=== PATIENT | female | born 1970 | race Two or more races ===

== ENCOUNTER → 2020-03-02 | Outpatient (CLI) | payer OTHER, SELFPAY | LOC: M LABSMTC 13:53 | PROVIDERS: ATTEND Pediatrics | DX: Z20.828 Contact with and (suspected) exposure to other viral communicable diseases (principal) ==

== ENCOUNTER → 2021-01-13 | Outpatient (REF) ==
[~2021-01-13] MED LIST: CYCL-707 PO; HYDR-3490 PO; LOSA100T50 PO; NAPR-885 PO; PREG150C PO; ZOLP10TA2 PO
== END ==
LOC: M LABSMTC 11:45
PROVIDERS: ATTEND Pediatrics
DX: Z11.52 Encounter for screening for COVID-19 (principal); Z20.822 Contact with and (suspected) exposure to COVID-19

== ENCOUNTER 2021-01-16 01:53 | Inpatient (IN) | payer BC, OTHER ==
[2021-01-16] VITALS (8 sets, daily range): BP systolic 99–105; BP diastolic 52–66; O2SAT 90–95
[~2021-01-16] VITALS: Ht 170.2 cm; Wt 108.7 kg
[2021-01-16] MEDS ORDERED: ONDANSETRON 4MG/2ML VIAL IV ONE (02:45)
[2021-01-16] MEDS ORDERED: KETOROLAC 30 MG/ML 1ML VIAL IV ONE (02:45)
[2021-01-16] MEDS ORDERED: NS 1,000 ML IV ONE ×2 (02:45→04:50)
[2021-01-16 03:18] LABS: BASO # 0.1 10^3/uL (0.0-0.2); BASO % 0.4 % (0.0-1.0); EOS % 0.2 % (0.0-3.0); HEMATOCRIT 38.6 % (36.0-47.0); HEMOGLOBIN 13.8 g/dl (12.0-15.5); MEAN CORPUSCULAR HEMOGLOBIN 32.2 pg (27.0-33.0); MEAN CORPUSCULAR HGB CONC 35.8 g/dl (32.0-36.5); MEAN CORPUSCULAR VOLUME 90.2 fl (80.0-96.0); MONO # 0.5 10^3/uL (0.0-0.8); MONO % 2.9 % (2.0-8.0); NEUTROPHILS # 14.5 10^3/uL (1.5-8.5); NEUTROPHILS % 89.9 % (36.0-66.0); PLATELET COUNT, AUTOMATED 304 10^3/uL (150-450); RED BLOOD COUNT 4.28 10^6/uL (4.00-5.40); WHITE BLOOD COUNT 16.1 10^3/uL (4.0-10.0)
[2021-01-16] MEDS ORDERED: cefTRIAXone SOD 2 GM in D5W MINI-BAG PLUS 50 ML IV ONE (03:20)
[2021-01-16] MEDS: MORPHINE 2 MG/ML 1ML VIAL (J2270) IV PRN ×2 (03:32→04:52)
--- NOTE | 2021-01-16 03:35 | REPVR ---
PROCEDURE INFORMATION: Exam: CT Abdomen And Pelvis Without Contrast Exam date and time: 01/16/2021 2:19 AM Age: 50 years old Clinical indication: Abdominal pain; Additional info: Left sided flank pain, recent UTI, h/o stones TECHNIQUE: Imaging protocol: Computed tomography of the abdomen and pelvis without contrast. Radiation optimization: All CT scans at this facility use at least one of these dose optimization techniques: automated exposure control; mA and/or kV adjustment per patient size (includes targeted exams where dose is matched to clinical indication); or iterative reconstruction. COMPARISON: No relevant prior studies available. Study limitations: Evaluation for mass, inflammatory change, including bowel wall/fold thickening, viscera, and vasculature, is suboptimal without contrast. FINDINGS: LUNG BASES: No infiltrate or effusion. VASCULAR: Visualized cardiac size is at the upper end of normal. There is some calcific density in the region of the mitral valve. No abdominoaortic aneurysm or retroperitoneal hematoma. There is calcific atherosclerosis. Vascular patency is not evaluated on this exam. PERITONEAL : No free air or free fluid. GI: No hiatal hernia. The stomach contains some ingested material and gas. The stomach is not sufficiently distended to evaluate wall thickening. There is a 2.4 cm ovoid fatty lesion within the duodenal bulb which could represent a lipoma or ingested material. No appearance of a bowel obstruction. Evaluation for bowel wall and fold thickening is compromised on this study, secondary to lack of any contrast. No focal mesenteric inflammation is seen. Small nonspecific mesenteric lymph nodes are noted. Scattered fecal material and gas within portions of the colon and rectum. There is some reflux of fecal material into the distal ileum. No evidence of acute diverticulitis. The appendix does not appear inflamed. HEPATOBILIARY, PANCREAS, SPLEEN: Hepatic length is 25.7 cm. Attenuation of the liver is consistent with steatosis. The gallbladder has been removed. No pancreatic inflammation. Spleen not enlarged. ADRENALS, KIDNEYS, BLADDER, RETROPERITONEAL: Adrenals within normal limits. The left kidney appears slightly edematous and is mildly enlarged. There is mild left perinephric fatty stranding and pararenal fascial thickening compared to the right. There is moderately severe hydronephrosis of the left kidney. Within the left proximal ureter close to the left UPJ, there is a 6.1 x 7.7 by 11.4 mm calculus. No additional ureteral or obstructive calculi seen bilaterally. There are multiple additional nonobstructive bilateral renal calcifications. There is gas seen within the left renal collecting system, at the upper pole of the left kidney. There is gas within the urinary bladder. Unless there has been recent instrumentation, findings are worrisome for infection with gas producing organism or possibly fistula. Renal parenchyma is not well evaluated without contrast. Parenchymal involvement cannot be excluded by this study. Correlation with urinalysis and culture. No intraparenchymal renal gas is seen. The urinary bladder is not sufficiently distended to evaluate wall thickening or for complete diagnostic evaluation by this study. Clinical correlation and clinical follow-up is advised. Multiple small retroperitoneal lymph nodes are noted. PELVIC: No dominant cystic pelvic mass seen. The uterus is not visualized. Gas within the vagina may be iatrogenic. Differential could include infection or fistula. MUSCULOSKELETAL: Tiny fat containing umbilical hernia. Degenerative changes of the spine, most pronounced at the lower lumbar levels. Mild scoliosis. Mild bony degenerative changes within the pelvis. IMPRESSION: Edematous appearing left kidney with moderately severe hydronephrosis, secondary to a 6.1 x 7.7 x 11.4 mm calculus at the left UPJ. There is gas within the left renal collecting system and within the urinary bladder. Clinical correlation is advised. Genitourinary findings, differential and recommendations discussed above in detail. Severe hepatomegaly and hepatic steatosis. Other incidental findings and study limitations discussed above. Electronically signed by: Elver Rendon On 01/16/2021 03:34:09 AM
[2021-01-16 03:45] LABS: ALBUMIN 3.4 GM/DL (3.2-5.2); BILIRUBIN,DIRECT 0.1 MG/DL (0.0-0.2); BILIRUBIN,TOTAL 0.6 MG/DL (0.2-1.0); TOTAL PROTEIN 7.2 GM/DL (6.4-8.2)
[2021-01-16 04:17] LABS: RSV AMPLIFICATION NEGATIVE (NEGATIVE)
[2021-01-16] MEDS ORDERED: PREG150C PO (04:39)
[2021-01-16] MEDS ORDERED: NAPR-885 PO (04:39)
[2021-01-16] MEDS ORDERED: ZOLP10TA2 PO (04:39)
[2021-01-16] MEDS ORDERED: CYCL-707 PO (04:39)
[2021-01-16] MEDS ORDERED: HOME MED LIST COMPLETE! XX SCH (04:40)
[2021-01-16] MEDS ORDERED: HYDR-3490 PO (04:40)
[2021-01-16] MEDS ORDERED: LOSA100T50 PO (04:40)
[2021-01-16] MEDS ORDERED: ONDANSETRON 4MG/2ML VIAL IV PRN ×2 (04:45→09:30)
[2021-01-16] MEDS ORDERED: MOM 30ML SUSPENSION UDC PO PRN (04:45)
[2021-01-16] MEDS ORDERED: PIPERACILLIN/TAZOBACTAM SOD 3.375 GM in D5W MINI-BAG PLUS 50 ML IV SCH (04:45)
--- NOTE | 2021-01-16 04:45 | HPEPDOC ---
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 She's been having over the past several days urine that felt different but cannot describe it denies it being painful. She denies fevers or chills although she is starting to feel feverish right now in the ED. Her flank pain is associated with no nausea but no vomiting. She's had history of renal stones in the past and underwent lithotripsy approximately 10 years ago. She was recently treated for UTI 3 weeks ago she was treated with IM Rocephin and by mouth Keflex after which she felt better. In the ED imaging reveals left hydronephrosis secondary to a 6.1 x 7.7 x 11.4 mm calculus at the left UPJ. Urology Dr. Mcknight was consulted from the ED by Dr. Weir who advised patient will likely require stent in the morning and should be kept nothing by mouth he advised that he will sign out to the morning urologist when they switched shifts at 5 AM. Patient will be admitted to the hospital service in the meantime for treatment of complicated pyelonephritis with IV antibiotics and kept nothing by mouth for likely stenting by urology later today. 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 REVIEW OF SYSTEMS: 10 point review of systems complete all negative otherwise stated in HPI HOME MEDICATIONS: Please see below. PHYSICAL EXAMINATION: Constitutional: Awake and alert, in mild apparent discomfort ENT: Sclera are clear. Mucosa is moist. Respiratory: Lungs faint expiratory wheezing bilaterally otherwise clear lungs. No respiratory distress. No use of accessory muscles. Cardiovascular: RRR S1 and S2 are normal Gastrointestinal: Abdomen is soft, non distended, non tender, BS present. Musculoskeletal: symmetrical dependent lower extremity edema. left sided CVA tenderness. Neurologic: No focal neurological deficit. Mental Status: A&O x3, normal affect Skin: Warm, dry LABORATORY DATA: See below. IMAGING: See chart MICROBIOLOGY: Please see below. ASSESSMENT/PLAN 50-year-old female admitted with left flank pain found to have suspect pyelonephritis versus infected renal stone. Admitted for IV antibiotics and evaluation by urology likely for stenting later today. # Suspect pyelonephritis versus infected renal stone: IV Zosyn for complicated disease with presence of stone and severe hydro on CT. Pain control IV morphine PRN. IV zofran PRN. 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 NPO for likely p rocedure this morning for stenting. Fu UCx. # Hypertension: Uncontrolled. Pain probably contributing. Pain control. Continue home antihypertensive medications. Adjust and titrate as needed. # Suspected newly diagnosed DM: Blood sugar 322. Fu A1C. ISS. Hypoglycemic precautions. # DVT prophylaxis: Heparin A Yousef Hospitalist Vital Signs Vital Signs Date Time Temp Pulse Resp B/P (MAP) Pulse Ox O2 Delivery O2 Flow Rate FiO2 01/16/21 03:32 20 97 Room Air 01/16/21 01:54 98.9 98 170/92 (118) Laboratory Data Labs 24H Laboratory Tests 2 01/16/21 02:07: Urine Color YELLOW, Urine Appearance CLOUDYH, Urine pH 5.0, Urine Specific [place] 1.027, Urine Protein 2+H, Urine Glucose (UA) 3+H, Urine Ketones NEGATIVE, Urine Blood 3+H, Urine Nitrite POSITIVEH, Urine Bilirubin NEGATIVE, Urine Urobilinogen 0.2, Urine Leukocyte Esterase 2+H, Urine WBC (Auto) TNTCH, Urine RBC (Auto) 137H, Urine Hyaline Casts (Auto) 0, Urine Bacteria (Auto) 1+H, Urine Squamous Epithelial Cells 8, Urine Mucus (Auto) SMALL, Urine Yeast-Like Cells (Auto) SMALLH, Urine Sperm (Auto) 01/16/21 02:53: Immature Granulocyte % (Auto) 0.6, Neutrophils (%) (Auto) 89.9H, Lymphocytes (%) (Auto) 6.0L, Monocytes (%) (Auto) 2.9, Eosinophils (%) (Auto) 0.2, Basophils (%) (Auto) 0.4, Neutrophils # (Auto) 14.5H, Lymphocytes # (Auto) 1.0L, Monocytes # (Auto) 0.5, Eosinophils # (Auto) 0.0, Basophils # (Auto) 0.1, Nucleated Red Blood Cells % (auto) 0.0, Total Bilirubin 0.6, Direct Bilirubin 0.1, Aspartate Amino Transf (AST/SGOT) 17, Alanine Aminotransferase (ALT/SGPT) 31, Alkaline Phosphatase 101, Total Protein 7.2, Albumin 3.4, Albumin/Globulin Ratio 0.9L, Lipase 147, Coronavirus (COVID-19)(PCR) NEGATIVE, Influenza Type A (RT-PCR) NEGATIVE, Influenza Type B (RT-PCR) NEGATIVE, Respiratory Syncytial Virus (PCR) NEGATIVE 01/16/21 03:23: POC Glucose (Misc Panel) 322H, POC Sodium (Misc Panel) 135L, POC Potassium (Misc Panel) 3.7, POC Chloride (Misc Panel) 96L, POC Total CO2 (Misc Panel) 25.0, POC Blood Urea Nitrogen (Misc Panel 17, POC Ionized Calcium (Misc Panel) 4.7, POC Creatinine (Misc Panel) 0.7, POC Hematocrit (Misc Panel) 39.0 CBC/BMP Laboratory Tests 01/16/21 02:53 Microbiology Microbiology 01/16/21 Urine Culture, Received Pending Home Medications Scheduled Cyclobenzaprine HCl (Cyclobenzaprine HCl) 10 Mg Tablet, 10 MG PO QHS PT WORKS [employer] Hydrochlorothiazide (Hydrochlorothiazide) 25 Mg Tablet, 25 MG PO BID Losartan Potassium (Losartan Potassium) 100 Mg Tablet, 100 MG PO DAILY Naproxen (Naproxen) 500 Mg Tablet, 500 MG PO BID Pregabalin (Pregabalin) 150 Mg Capsule, 150 MG PO BID Zolpidem Tartrate (Zolpidem Tartrate) 10 Mg Tablet, 10 MG PO QHS PT, WORKS [employer] Allergies Coded Allergies: Penicillins (Verified Allergy, Mild, 01/16/21) JENISE GRACE MD Jan 16, 2021 04:45
[2021-01-16] MEDS ORDERED: GLUCAGON INJ 1MG VIAL SC PRN (05:00)
[2021-01-16] MEDS ORDERED: GLUCOSE 4GM CHEW TABLET PO PRN (05:00)
[2021-01-16] MEDS ORDERED: DEXTROSE 50% 50 ML SYRINGE IV PRN (05:00)
--- NOTE | 2021-01-16 05:13 | REPVR ---
PROCEDURE INFORMATION: Exam: XR Chest Exam date and time: 01/16/2021 5:01 AM Age: 50 years old Clinical indication: Pre-operative exam; Respiratory screening exam; Additional info: Preop TECHNIQUE: Imaging protocol: XR of the chest. Views: 1 view. COMPARISON: None FINDINGS: LUNGS and PLEURAL SPACE: The lungs are symmetrically expanded. Lung volumes are at the lower end of normal. Mildly elevated vascular and reticular lung markings seen which could be correlated for mild vascular congestion. There is no consolidation, pneumothorax or pleural effusion. MEDIASTINUM: There is no mediastinal shift or widening. CARDIAC SILHOUETTE: Cardiac size is at the upper end of normal. BONY THORAX: No acute findings are seen. IMPRESSION: Mildly elevated vascular/reticular lung markings. Findings discussed above in detail. Electronically signed by: Elver Rendon On 01/16/2021 05:13:35 AM
--- NOTE | 2021-01-16 05:52 | ECGEPIP ---
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
[2021-01-16] MEDS ORDERED: METOCLOPRAMIDE INJ 10MG/2ML VIAL (J2765 PER 1) IV ONE (06:30)
[2021-01-16] MEDS: HEPARIN SOD (PORCINE) 5000UNITS/ML 1ML VIAL/SYRINGE SC SCH ×3 (06:39→21:41)
[2021-01-16] MEDS: HumaLOG INSULIN (NovoLOG) PER UNIT SC SCH ×3 (06:46→17:54)
[2021-01-16] MEDS: ACETAMINOPHEN TAB 650MG DOSE (2X325MG) PO PRN (06:50)
[2021-01-16 07:18] LABS: HEMATOCRIT 36.3 % (36.0-47.0); MEAN CORPUSCULAR HGB CONC 35.8 g/dl (32.0-36.5); MEAN CORPUSCULAR VOLUME 92.1 fl (80.0-96.0); PLATELET COUNT, AUTOMATED 234 10^3/uL (150-450); RED BLOOD COUNT 3.94 10^6/uL (4.00-5.40); WHITE BLOOD COUNT 7.5 10^3/uL (4.0-10.0)
[2021-01-16] MEDS ORDERED: CONRAY-60 60% 50ML VIAL (Q9961) As Ordered ONE (07:29)
[2021-01-16] MEDS ORDERED: NS 1,000 ML IV SCH (07:30)
[2021-01-16 07:35] LABS: HEMOGLOBIN A1c 8.8 %
[2021-01-16 07:41] LABS: BILIRUBIN,TOTAL 0.5 MG/DL (0.2-1.0); CALCIUM LEVEL 8.1 MG/DL (8.5-10.1); CREATININE FOR GFR 1.24 MG/DL (0.55-1.30); GLOMERULAR FILTRATION RATE 48.5 (>51); POTASSIUM SERUM 3.7 MEQ/L (3.5-5.1); TOTAL PROTEIN 6.4 GM/DL (6.4-8.2)
[2021-01-16] MEDS ORDERED: fentaNYL 100 MCG/2 ML INJECTION (J3010) As Ordered ONE (07:51)
[2021-01-16] MEDS ORDERED: propofoL 200 MG/20 ML VIAL As Ordered ONE ×2 (07:51→07:52)
[2021-01-16] MEDS ORDERED: LIDOCAINE 2% 100MG/5ML SDV (FOR ANES.) As Ordered ONE (07:51)
[2021-01-16] MEDS ORDERED: ONDANSETRON 4MG/2ML VIAL As Ordered ONE (07:51)
[2021-01-16] MEDS ORDERED: MIDAZOLAM INJ 2MG/2ML VIAL (J2250 PER 1MG) As Ordered ONE (07:51)
[2021-01-16] MEDS ORDERED: dexameTHASONE 4 MG/ML 1ML VIAL (J1100 PER 1MG) As Ordered ONE (07:51)
--- NOTE | 2021-01-16 08:14 | SMCUROLCON ---
Urology Consultation General Date of Consultation 01/16/21 Reason For Consultation This patient is seen for Hydronephrosis,Pyelonephritis,Ureteral Stone. History of Present Illness This is a 50 y/o F w/ a PMH significant for HTN and kidney stones, presenting to the ER w/ worsening L flank pain and nausea and vomiting. Work up in the ED was notable for a 1cm obstructing L UPJ stone w/ air in the upper pole of an edematous appearing L kidney as well as additional small nonobstructing stones. Her UA is positive for nitrites, TNTC WBC, and 1+ bacteria. She notes that she has progressively felt worse since being in the ER. She notes having dysuria over the last few days and has started having fevers this morning. Past Medical History Medical History see HPI Surgical Hstory Hysterectomy Cholecystectomy Lithotripsy Medications Current Medications Current Medications Medications (Trade) Dose Ordered Sig/Clotilde Route PRN Reason Start Time Stop Time Status Last Admin Dose Admin Acetaminophen (Tylenol Tab) 650 mg Q4H PRN PO MILD PAIN or TEMP > 101 01/16/21 04:45 01/16/21 06:50 Cefepime HCl 2 gm/ Dextrose 50 ml @ 100 mls/hr Q8H IV 01/16/21 08:00 Cyclobenzaprine HCl (Flexeril) 10 mg QHS PO 01/16/21 21:00 Dextrose (Dextrose 50%) 25 ml ASDIRECTED PRN IV SEE LABEL COMMENTS 01/16/21 05:00 Glucagon (Glucagon) 1 mg ASDIRECTED PRN SC SEE LABEL COMMENTS 01/16/21 05:00 Glucose (Glucose) 16 GM ASDIRECTED PRN PO SEE LABEL COMMENTS 01/16/21 05:00 Heparin Sodium (Porcine) (Heparin) 5,000 units Q8H SC 01/16/21 06:00 01/16/21 06:39 Home Med (Home Med List Complete!) ASDIRECTED XX 01/16/21 04:40 01/16/21 04:43 DC Hydrochlorothiazide (Hydrodiuril) 25 mg BID PO 01/16/21 09:00 Insulin Human Lispro (HumaLOG INSULIN) SEE PROTOCOL TABLE Q6H SC 01/16/21 06:00 01/16/21 06:46 Losartan Potassium (Cozaar) 100 mg DAILY PO 01/16/21 09:00 Magnesium Hydroxide (Milk Of Magnesia) 30 ml DAILY PRN PO CONSTIPATION 01/16/21 04:45 Morphine Sulfate (Morphine Sulfate Inj) 2 mg Q30M PRN IV MODERATE PAIN (PS 5-7) 01/16/21 02:45 01/16/21 04:52 DC 01/16/21 04:52 Ondansetron HCl (ZOFRAN INJection) 4 mg Q6HP PRN IV NAUSEA OR VOMITING 01/16/21 04:45 01/16/21 05:18 Piperacillin Sod/ Tazobactam Sod 3.375 gm/Dextrose 50 ml @ 50 mls/hr Q6H IV 01/16/21 04:45 01/16/21 05:25 DC Pregabalin (Lyrica) 150 mg BID PO 01/16/21 09:00 Sodium Chloride 1,000 ml @ 100 mls/hr Q10H IV 01/16/21 07:30 Allergies Allergies: Coded Allergies: Penicillins (Verified Allergy, Mild, 01/16/21) Review of Systems Constitutional: Reports: Fever Pulmonary: Denies: Dyspnea, Cough Cardiovascular: Denies Chest Pain, Denies Palpitations Gastrointestinal: Reports: Nausea, Vomiting Genitourinary: Reports: Dysuria Musculoskeletal: Reports: Back Pain (L flank) Neurological: Denies: Weakness, Numbness, Incoordination, Change in Speech Psych: Reports: Mood Normal Physical Examination General Exam: Alert, Cooperative, No Acute Distress Chest Exam: Normal air movement Heart Exam: Tachycardic Abdomen Exam: Soft Skin Exam: Nl turgor and temperature Neuro Exam: Normal Speech Psych Exam: Mental status NL, Mood NL Vital Signs/I&O Vital Signs Date Time Temp Pulse Resp B/P (MAP) Pulse Ox O2 Delivery O2 Flow Rate FiO2 01/16/21 06:55 129 18 93 Room Air 01/16/21 06:40 102.1 01/16/21 06:00 131/56 (81) I&O- Last 24 Hours up to 6 AM 01/16/21 06:00 Intake Total 1050 ml Balance 1050 ml Laboratory Data 24H Labs Laboratory Tests 2 01/16/21 02:07: Urine Color YELLOW, Urine Appearance CLOUDYH, Urine pH 5.0, Urine Specific [place] 1.027, Urine Protein 2+H, Urine Glucose (UA) 3+H, Urine Ketones NEGATIVE, Urine Blood 3+H, Urine Nitrite POSITIVEH, Urine Bilirubin NEGATIVE, Urine Urobilinogen 0.2, Urine Leukocyte Esterase 2+H, Urine WBC (Auto) TNTCH, Urine RBC (Auto) 137H, Urine Hyaline Casts (Auto) 0, Urine Bacteria (Auto) 1+H, Urine Squamous Epithelial Cells 8, Urine Mucus (Auto) SMALL, Urine Yeast-Like Cells (Auto) SMALLH, Urine Sperm (Auto) 01/16/21 02:53: Immature Granulocyte % (Auto) 0.6, Neutrophils (%) (Auto) 89.9H, Lymphocytes (%) (Auto) 6.0L, Monocytes (%) (Auto) 2.9, Eosinophils (%) (Auto) 0.2, Basophils (%) (Auto) 0.4, Neutrophils # (Auto) 14.5H, Lymphocytes # (Auto) 1.0L, Monocytes # (Auto) 0.5, Eosinophils # (Auto) 0.0, Basophils # (Auto) 0.1, Nucleated Red Bl ood Cells % (auto) 0.0, Total Bilirubin 0.6, Direct Bilirubin 0.1, Aspartate Amino Transf (AST/SGOT) 17, Alanine Aminotransferase (ALT/SGPT) 31, Alkaline Phosphatase 101, Total Protein 7.2, Albumin 3.4, Albumin/Globulin Ratio 0.9L, Lipase 147, Coronavirus (COVID-19)(PCR) NEGATIVE, Influenza Type A (RT-PCR) NEGATIVE, Influenza Type B (RT-PCR) NEGATIVE, Respiratory Syncytial Virus (PCR) NEGATIVE 01/16/21 03:23: POC Glucose (Misc Panel) 322H, POC Sodium (Misc Panel) 135L, POC Potassium (Misc Panel) 3.7, POC Chloride (Misc Panel) 96L, POC Total CO2 (Misc Panel) 25.0, POC Blood Urea Nitrogen (Misc Panel 17, POC Ionized Calcium (Misc Panel) 4.7, POC Creatinine (Misc Panel) 0.7, POC Hematocrit (Misc Panel) 39.0 01/16/21 06:24: Bedside Glucose (Misc Panel) 204H 01/16/21 06:57: Nucleated Red Blood Cells % (auto) 0.0, Anion Gap 11, Glomerular Filtration Rate 48.5L, Estimated Mean Plasma Glucose 206H, Hemoglobin A1c 8.8, Calcium Level 8.1L, Total Bilirubin 0.5, Aspartate Amino Transf (AST/SGOT) 28, Alanine Aminotransferase (ALT/SGPT) 33, Alkaline Phosphatase 90, Total Protein 6.4, Albumin 3.0L, Albumin/Globulin Ratio 0.9L CBC/BMP Laboratory Tests 01/16/21 02:53 01/16/21 06:57 Microbiology Microbiology 01/16/21 Urine Culture, Received Pending Assessment This is a 50 y/o F w/ likely L pyelonephritis and an obstructing 1cm L UPJ stone. I recommended that we take her to the OR this morning for cystoscopy and L ureteral stent placement. After a discussion of the risks and benefits of surgery, informed consent was signed. Plan - patient admitted to hospitalist service - informed consent signed for cystoscopy and L ureteral stent placement - rocephin given earlier this morning - urine culture obtained - NPO - plan for OR now NATHANIEL DIXON MD Jan 16, 2021 08:14
[2021-01-16] MEDS ORDERED: LIDOCAINE 2% 5ML JELLY UROJET As Ordered ONE (08:35)
[2021-01-16] MEDS: LOSARTAN 50MG TABLET PO SCH (09:00)
--- NOTE | 2021-01-16 09:27 | RO ---
OPERATIVE NOTE DATE OF OPERATION: 01/16/2021 PREOPERATIVE DIAGNOSIS: Left kidney stone. POSTOPERATIVE DIAGNOSIS: Left kidney stone. PROCEDURE: Cystoscopy, left retrograde pyelogram with intraop interpretation of images, left ureteral stent placement. SURGEON: Tano Briceño MD ELECTRICAL LOGGING ENGINEER: None. ANESTHESIA: MAC. OPERATIVE INDICATIONS: This is a 50-year-old female who presented to the emergency room with symptoms of left-sided pyelonephritis as well as an obstructing 1 cm left ureteropelvic junction stone. Due to worsening condition with fevers and worsening tachycardia, it was recommended she be brought to the operating room emergently for left ureteral stent placement. DESCRIPTION OF PROCEDURE: The patient was brought to the operating room and MAC anesthesia was administered. Broad spectrum antibiotics had already been infused. She was then placed in the dorsal lithotomy position and prepped and draped in usual sterile fashion. Rigid cystoscope was inserted into the urethral meatus and advanced to the bladder. Guidewire was advanced up the left collecting system. I then advanced a 5-English open-ended ureteral catheter up the left collecting system. The wire was removed. I then aspirated out approximately 30-40 mL of somewhat purulent looking urine from the left kidney. Once all the urine was aspirated retrograde pyelogram was performed and was notable for moderate left hydronephrosis but no extravasation. I then advanced the guidewire back up the left collecting system and removed the ureteral catheter. The guidewire was then utilized to advance 7-English x 22-32 cm JJ ureteral stent up the left collecting system. The wire was removed and there were adequate curls of the stent in left renal pelvis and in the bladder. At this point I then inserted 16-English Rdz catheter into the bladder. The balloon was filled with 10 mL sterile water and the catheter was connected to gravity drainage. This marked the conclusion of the procedure. The patient was taken out of dorsal lithotomy position, awakened from anesthesia and transported to the recovery room in stable condition. ESTIMATED BLOOD LOSS: 5 mL. COMPLICATIONS: None. SPECIMEN: Urine from left kidney for culture. PLAN: The patient will be admitted to the hospital for pyelonephritis with antibiotics for a few days. We will ultimately bring her back to the operating room in a few weeks for lithotripsy to remove her left-sided kidney stone.
[2021-01-16] MEDS ORDERED: LR 1,000 ML IV SCH (09:30)
[2021-01-16] MEDS ORDERED: fentaNYL 100 MCG/2 ML INJECTION (J3010) IV PRN (09:30)
--- NOTE | 2021-01-16 09:31 | REP ---
INDICATION: LEFT STENT PLACEMENT. COMPARISON: None. TECHNIQUE: Two spot views obtained using a portable C-arm device during left-sided double pigtail stent placement FINDINGS: There is a double pigtail stent seen on the left the proximal portion of which is in the renal pelvis and the distal portion of which is in the urinary bladder. IMPRESSION: As above <Electronically signed by Everett Solano > 01/16/21 0924
[2021-01-16] MEDS ORDERED: oxyCODONE 5MG TAB PO PRN ×2 (09:35→11:35)
[2021-01-16] MEDS: CEFEPIME HCL 2 GM in D5W MINI-BAG PLUS 50 ML IV SCH ×2 (11:36→16:24)
[2021-01-16] MEDS: PREGABALIN 75 MG CAP(LYRICA) PO SCH ×2 (11:37→20:09)
[2021-01-16] MEDS: oxyCODONE 5MG TAB PO PRN ×2 (11:55→20:10)
--- NOTE | 2021-01-16 16:06 | IPNPDOC ---
Text Note Date of Service The patient was seen on 01/16/21. NOTE S: Pt was seen on the medical unit s/p surgery. Pt states she still has some diffuse abdominal and lower back tenderness but knows it is expected s/p surgery but the dark urine has gotten better. ROS: CONSTITUTIONAL: Denies fevers or chills. CARDIOPULMONARY: Denies chest pain, SOB, dyspnea, cough GASTROINTESTINAL: Admits to diffuse abdominal pain. Denies n/v. GENITOURINARY: Admits to hematuria. Denies dysuria. MUSCULOSKELETAL: Admits to lower back tenderness. O: PHYSICAL EXAMINATION: VITALS: See below GENERAL: Pt was seen laying on her right side after coming back from surgery in mild discomfort. A&O x4. HEENT: Head NC and AT. EOIM. Sclera clear. Mucus membranes moist. LUNGS: CTA b/l. No wheeze, rales, crackles. No accessory muscles used. HEART: RRR. S1S2. No m/r/g appreciated. ABDOMEN: Abd tender to palpation. Bowel sounds present. Rdz in place noted draining clear urine but had dark colored urine in the Rdz bag. EXTREMITIES: No edema or cyanosis. MUSCULOSKELETAL: Moves all extremities. No obvious deformities appreciated. NEUROLOGIC: No gross focal deficits appreciated Imaging: CT abd/pel w/o contrast 01/16/2021: -Edematous appearing left kidney with moderately severe hydronephrosis, sec ondary to a 6.1 x 7.7 x 11.4 mm calculus at the left UPJ. There is gas within the left renal collecting system and within the urinary bladder. Clinical correlation is advised. Genitourinary findings, differential and recommendations discussed in report. -Severe hepatomegaly and hepatic steatosis. -Other incidental findings and study limitations discussed in report CXR 01/16/2021: -Mildly elevated vascular/reticular lung markings. Retrograde pyelogram 01/16/2021: There is a double pigtail stent seen on the left the proximal portion of which is in the renal pelvis and the distal portion of which is in the urinary bladder. EKG 01/16/2021: -Sinus tachy Micro: BCx 01/16 pending UCx 01/16 x2 pending including urine from cystoscopy A/P: Ms. Johnson is a 51 yo female with a PMH of HTN, insomnia, renal stone s/p lithotripsy 10 years ago presents to the ED on 01/16 with a one day history of left flank pain and admitted for pyelonephritis and L nephrolithiasis now s/p ureteral stent placement this morning. # Left flank pain 2/2 pyelonephritis and nephrolithiasis -s/p cystoscopy, left retrograde pyelogram and 7-German x 22-32 cm JJ ureteral stenting 01/16 -UA 01/16 positive for nitrates, TNTC WBC, 1+ bacteria -c/t IV cefepime 2g IV q8hr for complicated disease with presence of stone and severe hydro on CT. Noted to have Penicillin allergy. -c/t oxycodone and Acetaminophen PRN for pain -c/t IV Zofran PRN for nausea -s/p 2L NS in ED/surgery -UCx x2 01/16 pending -Urology consult f/u appreciated -Monitor I/O's # Hydronephrosis 2/2 ureteral stone -s/p cystoscopy, left retrograde pyelogram with left 7-German x 22-32 cm JJ ureteral stenting 01/16 -Per Urology Dr. Briceño, pt will return to OR in a few weeks for lithotripsy to remove left-sided renal stone # HTN -c/t home med Losartan and HTZ # Newly diagnosed DMT2 -FBSG 322 on 01/16 -A1c 8.8 01/16 -c/t SSI and hypoglycemic precautions -nursing education for diabetes ordered DVT Ppx: Heparin 5,000 units subQ q8hr Diet: Consistent carbs Code: Full code Disposition: Anticipate d/c home pending clinical improvement VS,Yarely, I+O VS, Yarely, I+O Laboratory Tests 01/16/21 02:53 01/16/21 06:57 Vital Signs Date Time Temp Pulse Resp B/P (MAP) Pulse Ox O2 Delivery O2 Flow Rate FiO2 01/16/21 12:15 98.4 105 20 104/52 (69) 94 Room Air I&O- Last 24 Hours up to 6 AM 01/16/21 06:00 Intake Total 1050 ml Balance 1050 ml GME ATTESTATION GME ATTESTATION My faculty preceptor for this patient encounter was physically present during the encounter and was fully available. All aspects of the patient interview, examination, medical decision making process, and medical care plan development were reviewed and approved by the faculty preceptor. The faculty preceptor is aware and concurs with the plan as stated in the body of this note and will attest to such by his/her cosignature. ATTENDING NOTE I, Tucker Lopez MD, have independently examined this patient and performed my own physical exam, as well as reviewed the documentation and edited where necessary. I have discussed in detail with the resident the findings and plan of treatment as documented by the resident and edited their note. I agree with their findings and treatment plan and have edited their documentation. TARIQ VICTORIA OMS-4 Jan 16, 2021 13:59 KARY BYERS D.O. Jan 16, 2021 17:02 TUCKER LOPEZ MD Jan 19, 2021 13:44
[2021-01-16] MEDS: CYCLOBENZAPRINE 10MG TABLET PO SCH (20:09)
[2021-01-16] MEDS: zolPIDEM TARTRATE 5 MG TAB PO SCH (21:41)
[2021-01-17] MEDS: HumaLOG INSULIN (NovoLOG) PER UNIT SC SCH ×4 (00:27→18:13)
[2021-01-17] MEDS: CEFEPIME HCL 2 GM in D5W MINI-BAG PLUS 50 ML IV SCH ×3 (00:27→16:00)
[2021-01-17 06:00] VITALS: BP 115/66
[2021-01-17] MEDS: HEPARIN SOD (PORCINE) 5000UNITS/ML 1ML VIAL/SYRINGE SC SCH ×3 (06:38→21:54)
[2021-01-17 06:55] LABS: BLOOD UREA NITROGEN 20 MG/DL (7-18); CALCIUM LEVEL 8.2 MG/DL (8.5-10.1); CARBON DIOXIDE LEVEL 26 MEQ/L (21-32); CHLORIDE LEVEL 105 MEQ/L (98-107); CREATININE FOR GFR 0.69 MG/DL (0.55-1.30); GLOMERULAR FILTRATION RATE > 60.0 (>51); GLUCOSE, FASTING 259 MG/DL (70-100); POTASSIUM SERUM 3.9 MEQ/L (3.5-5.1); SODIUM LEVEL 136 MEQ/L (136-145)
[2021-01-17 06:56] LABS: BASO # 0.1 10^3/uL (0.0-0.2); BASO % 0.4 % (0.0-1.0); HEMATOCRIT 31.5 % (36.0-47.0); LYMPH # 1.2 10^3/uL (1.5-5.0); LYMPH % 5.8 % (24.0-44.0); MEAN CORPUSCULAR HEMOGLOBIN 32.2 pg (27.0-33.0); MEAN CORPUSCULAR HGB CONC 34.6 g/dl (32.0-36.5); MEAN CORPUSCULAR VOLUME 93.2 fl (80.0-96.0); MONO # 0.7 10^3/uL (0.0-0.8); MONO % 3.4 % (2.0-8.0); NEUTROPHILS # 18.2 10^3/uL (1.5-8.5); NEUTROPHILS % 87.3 % (36.0-66.0); PLATELET COUNT, AUTOMATED 225 10^3/uL (150-450); RED BLOOD COUNT 3.38 10^6/uL (4.00-5.40); WHITE BLOOD COUNT 20.8 10^3/uL (4.0-10.0)
[2021-01-17 06:59] LABS: HEMOGLOBIN 10.9 g/dl (12.0-15.5)
[2021-01-17 08:17] LABS: C REACTIVE PROTEIN QUANTITATIV 1.78 MG/DL (0.00-0.30)
[2021-01-17 08:18] LABS: C REACTIVE PROTEIN QUANTITATIV 1.29 MG/DL (0.00-0.30)
[2021-01-17] MEDS ORDERED: FLUBLOK(EGG FREE)(QUAD)INFLUENZA VACC 0.5ML SYRINGE 18YRS & OLDER IM ONE (09:00)
[2021-01-17] MEDS: LOSARTAN 50MG TABLET PO SCH ×2 (09:00→09:46)
[2021-01-17] MEDS: PREGABALIN 75 MG CAP(LYRICA) PO SCH ×2 (09:47→21:53)
[2021-01-17] MEDS: oxyCODONE 5MG TAB PO PRN ×2 (10:19→18:17)
[2021-01-17] MEDS: ACETAMINOPHEN TAB 650MG DOSE (2X325MG) PO PRN ×3 (10:20→21:54)
--- NOTE | 2021-01-17 10:20 | IPNPDOC ---
Text Note Date of Service The patient was seen on 01/17/21. NOTE Subjective: Patient is a 50-year-old female with a PMHx of HTN, Insomnia and Hx of nephrolithiasis (s/p Lithotripsy 10 years ago) who presented to the hospital with complaints of left-sided flank pain. Patient was found to have pyelonephritis and hydronephrosis with obstructive stone. Urology was called on consultation. Patient was admitted to the hospital service for further evaluation and treatment. Patient was seen and examined at the bedside. Patient was sitting up in chair, appears comfortable. Denies any nausea, vomiting, abdominal pain, diarrhea, or urinary discomfort. Denies any chest pain, short of breath, palpitations or cough. Objective: Vitals (See below) General: Sitting up in chair and appears to be comfortable without any acute distress, AAOx3 HEENT: NC, AT CVS: +S1S2 Lungs: Fair air entry b/l, no wheezing, rales or rhonchi Abdomen: Soft, nondistended. Mild suprapubic tenderness. No CVA tenderness elicited Extremities: Lower extremity is her without any significant pitting edema Imaging: CT abd/pel w/o contrast 01/16: Edematous appearing left kidney with moderately severe hydronephrosis, secondary to a 6.1 x 7.7 x 11.4 mm calculus at the left UPJ. There is gas within the left renal collecting system and within the urinary bladder. Clinical correlation is advised. Genitourinary findings, differential and recommendations discussed in report. Severe hepatomegaly and hepatic steatosis. Other incidental findings and study limitations discussed in report CXR 01/16: Mildly elevated vascular/reticular lung markings. Retrograde pyelogram 01/16: There is a double pigtail stent seen on the left the proximal portion of which is in the renal pelvis and the distal portion of which is in the urinary b ladder. Assessment and plan: Left flank pain - likely 2/2 pyelonephritis and nephrolithiasis - Clinically patient has reported improvement of her pain - Remains hemodynamically stable and afebrile - Leukocytosis noted this morning; Elevated CRP - Blood cultures 01/16: Pending - Urine cultures 01/16: Pending - c/w Cefepime (Day #2) Hydronephrosis 2/2 ureteral stone - s/p Cystoscopy / L ureteral stent on 11/[address] Briceño - Will need outpatient follow-up with urology within the next 7 days for likely planning for lithotripsy \ HTN - BP borderline low this morning - Will check Lactic acid - Will DC HCTZ - Will add hold parameters for Losartan Newly diagnosed DM2 - A1c 8.8% - c/w ISS DVT prophylaxis - c/w Heparin Disposition: - Pending clinical improvement - Anticipate discharge home tomorrow pending urine culture results VS,Fishbone, I+O VS, Fishbone, I+O Laboratory Tests 01/17/21 06:11 Vital Signs Date Time Temp Pulse Resp B/P (MAP) Pulse Ox O2 Delivery O2 Flow Rate FiO2 01/17/21 09:46 100/54 01/17/21 06:00 98.1 89 18 91 Room Air I&O- Last 24 Hours up to 6 AM 01/17/21 06:00 Intake Total 2450 ml Output Total 980 ml Balance 1470 ml REED RODAS MD Jan 17, 2021 10:20
[2021-01-17] MEDS ORDERED: NS 1,000 ML IV ONE (12:05)
--- NOTE | 2021-01-17 12:39 | REP ---
INDICATION: Vascular congestion?. COMPARISON: 01/16/2021. TECHNIQUE: Single portable AP view of the chest was performed. FINDINGS: There is bibasilar discoid atelectasis. There is no acute infiltrate or pulmonary edema. The heart and mediastinum are unremarkable and unchanged. IMPRESSION: Mild bibasilar discoid atelectasis. No acute infiltrate, pulmonary edema or significant vascular congestion. <Electronically signed by Art Spencer > 01/17/21 1028
--- NOTE | 2021-01-17 13:11 | IPNPDOC ---
Subjective Review oF Systems Chief Complaint The patient is a 50-year-old female admitted with a reason for visit of Hydronephrosis,Pyelonephritis,Ureteral Stone. Events since Last Encounter No acute events o/n. Patient notes that her L flank pain from preop is much better. She denies n/v. There were no fevers o/n. Objective Physical Examination General Exam: Alert, Cooperative, No Acute Distress ABDOMEN EXAM: Soft; No: Tenderness Skin Exam: Nl turgor and temperature Neuro Exam: Normal Speech Psych Exam: Mental status NL, Mood NL Other physical findings catheter draining pink urine Vital Signs/I&O Vital Signs Date Time Temp Pulse Resp B/P (MAP) Pulse Ox O2 Delivery O2 Flow Rate FiO2 01/17/21 10:49 18 01/17/21 09:00 110/56 01/17/21 06:00 98.1 89 91 Room Air I&O- Last 24 Hours up to 6 AM 01/17/21 05:59 Intake Total 2450 ml Output Total 980 ml Balance 1470 ml Laboratory Data Labs 24H Laboratory Tests 2 01/16/21 17:47: Bedside Glucose (Misc Panel) 342H 01/17/21 00:01: Bedside Glucose (Misc Panel) 302H 01/17/21 06:11: Immature Granulocyte % (Auto) 3.1H, Neutrophils (%) (Auto) 87.3H, Lymphocytes (%) (Auto) 5.8L, Monocytes (%) (Auto) 3.4, Eosinophils (%) (Auto) 0.0, Basophils (%) (Auto) 0.4, Neutrophils # (Auto) 18.2H, Lymphocytes # (Auto) 1.2L, Monocytes # (Auto) 0.7, Eosinophils # (Auto) 0.0, Basophils # (Auto) 0.1, Nucleated Red Blood Cells % (auto) 0.0, Anion Gap 5L, Glomerular Filtration Rate > 60.0, Calcium Level 8.2L, C-Reactive Protein, Quantitative 17.80H 01/17/21 06:18: Bedside Glucose (Misc Panel) 257H 01/17/21 11:02: Lactic Acid Level 2.2*H 01/17/21 11:47: Bedside Glucose (Misc Panel) 245H CBC/BMP Laboratory Tests 01/17/21 06:11 FSBS Laboratory Tests Test 01/16/21 17:47 01/17/21 00:01 01/17/21 06:18 01/17/21 11:47 Range/Units Bedside Glucose (Misc Panel) 342 302 257 245 70-105 MG/DL Microbiology Microbiology 01/16/21 Blood Culture - Preliminary, Resulted No growth after 24 hours . All specim... 01/16/21 Blood Culture - Preliminary, Resulted No growth after 24 hours . All specim... 01/16/21 Urine Culture, Received Pending 01/16/21 Urine Culture, Received Pending Assessment/Plan Date Seen The patient was seen on 01/17/21. Patient Summary This is a 50 y/o F admitted w/ L pyelonephritis and an obstructing 1cm L UPJ stone, POD1 s/p cysto and L ureteral stent placement. She feels much better. H er WBC is higher today at 20.8, which I suspect is reactive from surgery. She has been afebrile since surgery. Plan/VTE VTE Prophylaxis Ordered?: Yes VTE Exclusion Mechanical Proph: N/A:VTE Prophy Ordered Plan - d/c Rdz - strict I/Os - f/u culture results - continue broad spectrum abx and adjust once cultures are back - patient will need to be taken back to the OR for cystoscopy, L ureteroscopy w/ laser lithotripsy, and L ureteral stent placement to remove the stone - will plan for next week - informed consent signed today NATHANIEL DIXON MD Jan 17, 2021 13:11
[2021-01-17] MEDS: NS 1,000 ML IV SCH (13:13)
[2021-01-17] MEDS ORDERED: HumaLOG INSULIN (NovoLOG) PER UNIT SC ONE (13:15)
[2021-01-17 14:00] VITALS: BP 128/64
[2021-01-17] MEDS ORDERED: GLUCAGON INJ 1MG VIAL SC PRN (14:35)
[2021-01-17] MEDS ORDERED: DEXTROSE 50% 50 ML SYRINGE IV PRN (14:35)
[2021-01-17] MEDS ORDERED: GLUCOSE 4GM CHEW TABLET PO PRN (14:35)
[2021-01-17 21:00] VITALS: O2SAT 90
[2021-01-17] MEDS ORDERED: HumaLOG INSULIN (NovoLOG) PER UNIT SC SCH (21:00)
[2021-01-17] MEDS: CYCLOBENZAPRINE 10MG TABLET PO SCH (21:52)
[2021-01-17] MEDS: zolPIDEM TARTRATE 5 MG TAB PO SCH (21:53)
[2021-01-17] MEDS: SIMETHICONE 80MG CHEW TAB PO PRN (21:53)
[2021-01-17 22:00] VITALS: BP 126/68
[2021-01-18] MEDS: CEFEPIME HCL 2 GM in D5W MINI-BAG PLUS 50 ML IV SCH ×2 (00:18→08:00)
[2021-01-18] MEDS: oxyCODONE 5MG TAB PO PRN ×2 (00:20→07:00)
[2021-01-18] MEDS: NS 1,000 ML IV SCH (03:10)
[2021-01-18] MEDS: HEPARIN SOD (PORCINE) 5000UNITS/ML 1ML VIAL/SYRINGE SC SCH (05:18)
[2021-01-18 06:00] VITALS: BP 129/68
[2021-01-18 06:33] LABS: BASO # 0.1 10^3/uL (0.0-0.2); BASO % 0.4 % (0.0-1.0); EOS # 0.1 10^3/uL (0.0-0.5); EOS % 0.9 % (0.0-3.0); HEMATOCRIT 31.8 % (36.0-47.0); HEMOGLOBIN 11.1 g/dl (12.0-15.5); LYMPH # 1.9 10^3/uL (1.5-5.0); LYMPH % 13.7 % (24.0-44.0); MEAN CORPUSCULAR HEMOGLOBIN 32.3 pg (27.0-33.0); MEAN CORPUSCULAR HGB CONC 34.9 g/dl (32.0-36.5); MEAN CORPUSCULAR VOLUME 92.4 fl (80.0-96.0); MONO # 0.5 10^3/uL (0.0-0.8); MONO % 3.9 % (2.0-8.0); NEUTROPHILS # 10.6 10^3/uL (1.5-8.5); NEUTROPHILS % 78.7 % (36.0-66.0); PLATELET COUNT, AUTOMATED 231 10^3/uL (150-450); RED BLOOD COUNT 3.44 10^6/uL (4.00-5.40); WHITE BLOOD COUNT 13.5 10^3/uL (4.0-10.0)
[2021-01-18] MEDS ORDERED: LEVO750T13 PO (06:38)
[2021-01-18 06:48] LABS: BLOOD UREA NITROGEN 18 MG/DL (7-18); CALCIUM LEVEL 8.6 MG/DL (8.5-10.1); CARBON DIOXIDE LEVEL 28 MEQ/L (21-32); CHLORIDE LEVEL 105 MEQ/L (98-107); CREATININE FOR GFR 0.65 MG/DL (0.55-1.30); GLOMERULAR FILTRATION RATE > 60.0 (>51); GLUCOSE, FASTING 196 MG/DL (70-100); POTASSIUM SERUM 3.6 MEQ/L (3.5-5.1); SODIUM LEVEL 138 MEQ/L (136-145)
[2021-01-18] MEDS: SIMETHICONE 80MG CHEW TAB PO PRN (07:00)
[2021-01-18 08:24] VITALS: BP 129/68; O2SAT 94
[2021-01-18] MEDS: PREGABALIN 75 MG CAP(LYRICA) PO SCH (08:24)
[2021-01-18] MEDS: LOSARTAN 50MG TABLET PO SCH (08:24)
[2021-01-18] MEDS: HumaLOG INSULIN (NovoLOG) PER UNIT SC SCH (08:26)
[2021-01-18] MEDS ORDERED: METF10004 PO (11:50)
--- NOTE | 2021-01-18 11:51 | DS.PDOC ---
Discharge Summary General Date of Admission Jan 16, 2021 at 04:45 Date of Discharge 01/18/2021 Discharge Summary PROCEDURES PERFORMED DURING STAY: Cystoscopy / L ureteral stent on 01/[address] Briceño ADMITTING DIAGNOSES / DISCHARGE DIAGNOSES: Left flank pain - likely 2/2 pyelonephritis and nephrolithiasis Hydronephrosis 2/2 ureteral stone HTN Newly diagnosed DM2 DVT prophylaxis COMPLICATIONS/CHIEF COMPLAINT: Left flank pain HISTORY OF PRESENT ILLNESS: Patient is a 50-year-old female with a PMHx of HTN, Insomnia and Hx of nephrolithiasis (s/p Lithotripsy 10 years ago) who presented to the hospital with complaints of left-sided flank pain. Patient was found to have pyelonephritis and hydronephrosis with obstructive stone. Urology was called on consultation. Patient was admitted to the hospital service for further evaluation and treatment. Patient was seen and examined at the bedside. Patient reports that she has had an uneventful evening. She sitting up in a chair, appears to be comfortable, denies any chest pain, palpitations, cough. Has not experience any nausea, vomiting, abdominal pain. Denies diarrhea. HOSPITAL COURSE: Left flank pain - likely 2/2 pyelonephritis and nephrolithiasis - Patient has reported resolution of her flank pain - Remains hemodynamically stable and afebrile - Leukocytosis / CRP improving - Blood cultures 01/16: No growth at 48 hours - Urine cultures 01/16: E. Coli - Will discharge with Levofloxacin for completion of antibiotic course; Will DC Cefepime (Antibiotic day #3) Hydronephrosis 2/2 ureteral stone - s/p Cystoscopy / L ureteral stent on 01/[address] Briceño - Will need outpatient follow-up with urology within the next 7 days for likely planning for lithotripsy - At this point in time, patient is medically optimized at low risk for low risk procedure HTN - BP borderline low this morning - s/p HCTZ - c/w Losartan with hold parameters Newly diagnosed DM2 - A1c 8.8% - c/w ISS - Will provide Metformin on discharge DVT prophylaxis - c/w Heparin DISCHARGE MEDICATIONS: Please see below. ALLERGIES: Please see below. PHYSICAL EXAMINATION ON DISCHARGE: Vitals (See below) General: Lying in bed, appears comfortable, AAOx3 HEENT: NC, AT CVS: RRR, +S1S2 Lungs: Fair air entry b/l, no evidence of wheezing, rales or rhonchi Abdomen: Soft, ND, NT Extremities: - Edema, - Calf tenderness LABORATORY DATA: Please see below. IMAGING: CT abd/pel w/o contrast 01/16: Edematous appearing left kidney with moderately severe hydronephrosis, secondary to a 6.1 x 7.7 x 11.4 mm calculus at the left UPJ. There is gas within the left renal collecting system and within the urinary bladder. Clinical correlation is advised. Genitourinary findings, differential and recommendations discussed in report. Severe hepatomegaly and hepatic steatosis. Other incidental findings and study limitations discussed in report CXR 01/16: Mildly elevated vascular/reticular lung markings. Retrograde pyelogram 01/16: There is a double pigtail stent seen on the left the proximal portion of which is in the renal pelvis and the distal portion of which is in the urinary bladder. ACTIVITY: [As tolerated]. DISCHARGE PLAN: Follow-up with primary care provider, and urology within the next 7 days Remain compliant with treatment plan and medications Return to the ER if you experience any problems DISPOSITION: Home DISCHARGE CONDITION: [Stable]. TIME SPENT ON DISCHARGE: 35 minutes. Vital Signs/I&Os Vital Signs Date Time Temp Pulse Resp B/P (MAP) Pulse Ox O2 Delivery O2 Flow Rate FiO2 01/18/21 08:24 129/68 01/18/21 07:30 18 01/18/21 06:00 98.1 70 91 Room Air I&O- Last 24 Hours up to 6 AM 01/18/21 06:00 Intake Total 3180 ml Output Total 1800 ml Balance 1380 ml Laboratory Data Labs 24H Laboratory Tests 2 01/17/21 11:47: Bedside Glucose (Misc Panel) 245H 01/17/21 15:42: Lactic Acid Followup at 4 Hours 1.8 01/17/21 17:31: Bedside Glucose (Misc Panel) 221H 01/17/21 21:20: Bedside Glucose (Misc Panel) 242H 01/18/21 06:10: Immature Granulocyte % (Auto) 2.4, Neutrophils (%) (Auto) 78.7H, Lymphocytes (%) (Auto) 13.7L, Monocytes (%) (Auto) 3.9, Eosinophils (%) (Auto) 0.9, Basophils (%) (Auto) 0.4, Neutrophils # (Auto) 10.6H, Lymphocytes # (Auto) 1.9, Monocytes # (Auto) 0.5, Eosinophils # (Auto) 0.1, Basophils # (Auto) 0.1, Nucleated Red Blood Cells % (auto) 0.0, Anion Gap 5L, Glomerular Filtration Rate > 60.0, Calcium Level 8.6, C-Reactive Protein, Quantitative 11.50H CBC/BMP Laboratory Tests 01/18/21 06:10 FSBS Laboratory Tests Test 01/17/21 11:47 01/17/21 17:31 01/17/21 21:20 Range/Units Bedside Glucose (Misc Panel) 245 221 242 70-105 MG/DL Microbiology Microbiology 01/16/21 Blood Culture - Preliminary, Resulted No Growth after 48 hours. All Specime... 01/16/21 Blood Culture - Preliminary, Resulted No Growth after 48 hours. All Specime... 01/16/21 Urine Culture - Final, Complete Escherichia Coli 01/16/21 Urine Culture - Final, Complete Escherichia Coli Discharge Medications Scheduled Cyclobenzaprine HCl (Cyclobenzaprine HCl) 10 Mg Tablet, 10 MG PO QHS, (Reported) PT WORKS [employer] Levofloxacin (Levofloxacin) 750 Mg Tablet, 1 TAB PO DAILY Losartan Potassium (Losartan Potassium) 100 Mg Tablet, 100 MG PO DAILY, (Reported) Pregabalin (Pregabalin) 150 Mg Capsule, 150 MG PO BID, (Reported) Zolpidem Tartrate (Zolpidem Tartrate) 10 Mg Tablet, 10 MG PO QHS, (Reported) PT, WORKS [employer] Allergies Coded Allergies: Penicillins (Verified Allergy, Mild, 01/16/21) REED RODAS MD Jan 18, 2021 11:51
== END 2021-01-18 11:48 | disposition home or self-care (01) | DRG 463 ==
LOC: M ED 01:53 → M ED INP 04:45 → M MSPAV 10:06
PROVIDERS: ADMIT Family Medicine; ATTEND Internal Medicine
PROC: 0T778DZ Dilation of Left Ureter with Intraluminal Device, Via Natural or Artificial Opening Endoscopic (ICD-10-PCS; principal; 2021-01-16 07:03)
DX: N13.6 Pyonephrosis (principal); I10 Essential (primary) hypertension; E11.9 Type 2 diabetes mellitus without complications; E66.9 Obesity, unspecified; Z79.899 Other long term (current) drug therapy; Z88.0 Allergy status to penicillin; Z68.38 Body mass index [BMI] 38.0-38.9, adult; G47.00 Insomnia, unspecified; Z87.891 Personal history of nicotine dependence

== ENCOUNTER → 2021-01-20 | Outpatient (CLI) | payer BC ==
[~2021-01-20] MED LIST changes: +LEVO750T13 PO; +METF10004 PO
== END ==
LOC: M LABSMTC 11:04
PROVIDERS: ATTEND Anesthesiology
DX: Z01.818 Encounter for other preprocedural examination (principal); Z11.52 Encounter for screening for COVID-19

== ENCOUNTER 2021-01-25 07:07 | Day surgery (SDC) | payer BC ==
[~2021-01-25] VITALS: Ht 170.2 cm; Wt 107.2 kg
[~2021-01-25 07:07] MED LIST changes: +LR 1,000 ML IV ONE
[2021-01-25] MEDS ORDERED: ceFAZolin SOD 2 GM in IV 1 EA IV ONE (07:10)
[2021-01-25] MEDS ORDERED: CONRAY-60 60% 50ML VIAL (Q9961) As Ordered ONE (07:14)
[2021-01-25] MEDS ORDERED: fentaNYL 100 MCG/2 ML INJECTION (J3010) As Ordered ONE ×2 (08:06→09:05)
[2021-01-25] MEDS ORDERED: MIDAZOLAM INJ 2MG/2ML VIAL (J2250 PER 1MG) As Ordered ONE (08:06)
[2021-01-25] MEDS ORDERED: ONDANSETRON 4MG/2ML VIAL As Ordered ONE (08:08)
[2021-01-25] MEDS ORDERED: LIDOCAINE 2% 100MG/5ML SDV (FOR ANES.) As Ordered ONE (08:08)
[2021-01-25] MEDS ORDERED: dexameTHASONE 4 MG/ML 1ML VIAL (J1100 PER 1MG) As Ordered ONE (08:08)
[2021-01-25] MEDS ORDERED: propofoL 200 MG/20 ML VIAL As Ordered ONE (08:08)
[2021-01-25] MEDS ORDERED: ROCURONIUM BROMIDE 50 MG/5 ML VIAL As Ordered ONE ×2 (08:29→09:25)
[2021-01-25] MEDS ORDERED: SCOPOLAMINE 1MG TRANSDERMAL PATCH TOP ONE (08:30)
[2021-01-25] MEDS ORDERED: HumaLOG INSULIN (NovoLOG) PER UNIT SC ONE (08:30)
[2021-01-25] MEDS ORDERED: METOCLOPRAMIDE INJ 10MG/2ML VIAL (J2765 PER 1) As Ordered ONE (08:42)
[2021-01-25] MEDS ORDERED: SUGAMMADEX SODIUM 500 MG/5 ML VIAL (BRIDION) As Ordered ONE (09:09)
[2021-01-25] MEDS ORDERED: KETOROLAC 60MG 2ML VIAL As Ordered ONE (09:10)
--- NOTE | 2021-01-25 09:55 | REP ---
INDICATION: LEFT STENT PLACEMENT. COMPARISON: None. TECHNIQUE: Two spot views obtained during retrograde pyelogram and left-sided double pigtail stent placement. 11 seconds of fluoroscopy was provided Dr. Briceño for the exam. FINDINGS: Small amount of contrast material opacifies the left renal collecting system. There is a double pigtail stent seen on the left the proximal portion of which is in the renal pelvis and the distal portion of which is in the urinary bladder. IMPRESSION: As above <Electronically signed by Everett Solano > 01/25/21 0961
[2021-01-25] MEDS ORDERED: LR 1,000 ML IV SCH (10:05)
[2021-01-25] MEDS ORDERED: METOCLOPRAMIDE INJ 10MG/2ML VIAL (J2765 PER 1) IV PRN (10:05)
[2021-01-25] MEDS ORDERED: fentaNYL 100 MCG/2 ML INJECTION (J3010) IV PRN (10:05)
[2021-01-25] MEDS ORDERED: PERCOCET 5MG/325MG TAB PO PRN ×2 (10:05)
[2021-01-25] MEDS: ONDANSETRON 4MG/2ML VIAL IV PRN ×2 (10:23→10:25)
[2021-01-25 10:42] VITALS: BP 122/72
--- NOTE | 2021-01-25 10:44 | RO ---
OPERATIVE NOTE DATE OF OPERATION: 01/25/2021 PREOPERATIVE DIAGNOSIS: Left kidney stones. POSTOPERATIVE DIAGNOSIS: Left kidney stones. PROCEDURE: Cystoscopy, left ureteroscopy with laser lithotripsy and basket extraction of stones, left retrograde pyelogram with intraoperative interpretation of images, left ureteral stent exchange. SURGEON: NATHANIEL DIXON MD COUNSELING CASE MANAGER: None. ANESTHESIA: General. INDICATIONS: This is a 50-year-old female who was brought to the Operating Room last week for a left ureteral stent placement. She had an obstructing left proximal ureteral stone as well as pyelonephritis. She has been on culture- specific antibiotics. She was brought back to the Operating Room to remove her stones. DESCRIPTION OF PROCEDURE: The patient was brought to the operating room and general anesthesia was induced. Prophylactic antibiotics were infused. She was placed in the dorsal lithotomy position and prepped and draped in the usual sterile fashion. A rigid cystoscope was inserted in the urethral meatus and advanced into the bladder. The previously placed left ureteral stent was grasped and withdrawn until the distal end was protruding from the urethral meatus. A guidewire was advanced up the left collecting system. The stent was then completely removed. A ureteral access sheath was then advanced up the left collecting system. I went up the access sheath with a flexible ureteroscope. Within the proximal ureter, an approximately 8 to 9 mm size stone was seen. The stone was fragmented in smaller pieces using a 272 micron laser fiber. All the fragments were then removed using a basket. I then examined the left kidney thoroughly and there were several stone fragments in the middle and lower pole calyces. All of these fragments were removed using a basket. Once done, only very tiny stone debris remained which was small enough to pass. A retrograde pyelogram was then performed and was notable for moderate left hydronephrosis with no extravasation. I then withdrew the ureteroscope along the access sheath and no additional stones were seen inside the ureter. A guidewire was then utilized to advance a 6 Ukrainian x 22-32 cm JJ ureteral stent up the left collecting system. The wire was removed and there were adequate curls of the stent in the left renal pelvis and the bladder. The bladder was emptied of all fluids and this marked the conclusion of the procedure. The patient was taken out of the dorsal lithotomy position, awakened from anesthesia and transported to the recovery room in stable condition. ESTIMATED BLOOD LOSS: 5 mL. COMPLICATIONS: None. SPECIMEN: Kidney stone fragments. PLAN: The patient will follow-up in the Urology Clinic in a few weeks for stent removal. JANIS
[2021-01-30 18:08] LABS: Size 7x5 mm (.); Uric Acid 100 % (.)
== END 2021-01-25 11:08 | disposition home or self-care (01) ==
LOC: M SDC 07:07
PROVIDERS: ATTEND Urology
DX: N20.0 Calculus of kidney (principal); I10 Essential (primary) hypertension; E11.9 Type 2 diabetes mellitus without complications; Z79.84 Long term (current) use of oral hypoglycemic drugs; Z88.0 Allergy status to penicillin
CPT/HCPCS: 52356; 74420; 82365; 88300; C1769; C1894; C2617; J0690; J1100; J1885; J2250; J2405; J2765; J3010; Q9961

== ENCOUNTER → 2021-02-06 | Outpatient (REF) ==
[~2021-02-06] MED LIST changes: -LR 1,000 ML IV ONE
== END ==
LOC: M EMP 08:04
PROVIDERS: ATTEND Family Medicine
DX: Z20.822 Contact with and (suspected) exposure to COVID-19 (principal)

== ENCOUNTER → 2021-02-08 | Outpatient (REF) | LOC: M EMP 07:13 | PROVIDERS: ATTEND Family Medicine | DX: Z20.822 Contact with and (suspected) exposure to COVID-19 (principal) ==

== ENCOUNTER → 2022-04-13 | Outpatient (REF) ==
[~2022-04-13] MED LIST changes: +LEVO1TAB40 PO; -LEVO750T13 PO; +LOSA100T45 PO; -LOSA100T50 PO
== END ==
LOC: M EMP 10:24
PROVIDERS: ATTEND Family Medicine
DX: Z11.52 Encounter for screening for COVID-19 (principal)

== ENCOUNTER → 2023-01-03 | Outpatient (CLI) | payer BC, SELFPAY ==
[~2023-01-03] MED LIST changes: -LOSA100T45 PO; +LOSA100T46 PO; -PREG150C PO; +PREG150C2 PO
[2023-01-03 08:03] LABS: APPEARANCE, URINE CLEAR (CLEAR); BACTERIA, URINE AUTO NEGATIVE (NEGATIVE); BILIRUBIN, URINE AUTO NEGATIVE (NEGATIVE); BLOOD, URINE BLOOD NEGATIVE (NEGATIVE); COLOR, URINE YELLOW (YELLOW); GLUCOSE, URINE (UA) AUTO NEGATIVE (NEGATIVE); KETONE, URINE AUTO NEGATIVE (NEGATIVE); LEUKOCYTE ESTERASE, URINE AUTO NEGATIVE (NEGATIVE); MUCUS, URINE SMALL (NEGATIVE); NITRITE, URINE AUTO NEGATIVE (NEGATIVE); PROTEIN, URINE AUTO NEGATIVE (NEGATIVE); RBC, URINE AUTO 0 /HPF (0-3); SQUAMOUS EPITHELIAL CELL UR AU 1 /HPF (0-6); UROBILINOGEN, URINE AUTO 0.2 mg/dL (0.0-2.0); WBC, URINE AUTO 2 /HPF (0-3)
[2023-01-03 08:11] LABS: BASO # 0.1 10^3/uL (0.0-0.2); BASO % 1.1 % (0.0-1.0); EOS # 0.1 10^3/uL (0.0-0.5); EOS % 1.8 % (0.0-3.0); HEMATOCRIT 42.9 % (36.0-47.0); HEMOGLOBIN 14.9 g/dl (12.0-15.5); LYMPH # 3.1 10^3/uL (1.5-5.0); LYMPH % 40.6 % (24.0-44.0); MEAN CORPUSCULAR HEMOGLOBIN 31.7 pg (27.0-33.0); MEAN CORPUSCULAR HGB CONC 34.7 g/dl (32.0-36.5); MEAN CORPUSCULAR VOLUME 91.3 fl (80.0-96.0); MONO # 0.5 10^3/uL (0.0-0.8); MONO % 6.6 % (2.0-8.0); NEUTROPHILS # 3.8 10^3/uL (1.5-8.5); NEUTROPHILS % 49.4 % (36.0-66.0); PLATELET COUNT, AUTOMATED 322 10^3/uL (150-450); WHITE BLOOD COUNT 7.6 10^3/uL (4.0-10.0)
[2023-01-03 08:25] LABS: BLOOD UREA NITROGEN 15 MG/DL (9-23); CARBON DIOXIDE LEVEL 28 MMOL/L (20-31); CHLORIDE LEVEL 104 MMOL/L (98-107); CREATININE FOR GFR 0.63 MG/DL (0.55-1.30); GLOMERULAR FILTRATION RATE > 60.0 (>51); GLUCOSE, FASTING 150 MG/DL (60-100); POTASSIUM SERUM 4.4 MMOL/L (3.5-5.1); SODIUM LEVEL 139 MMOL/L (136-145)
== END ==
LOC: M LAB 07:18
PROVIDERS: ATTEND Urology
DX: N39.41 Urge incontinence (principal); N39.3 Stress incontinence (female) (male)

== ENCOUNTER → 2023-03-13 | Outpatient (REF) ==
[2023-03-13 16:13] LABS: RSV AMPLIFICATION NEGATIVE (NEGATIVE)
== END ==
LOC: M EMP 11:56
PROVIDERS: ATTEND Family Medicine
DX: Z11.52 Encounter for screening for COVID-19 (principal)